=== PATIENT | female | born 1980 | race African-American/Black ===

== ENCOUNTER 2017-04-16 12:30 | Emergency (ER) | payer BC ==
[~2017-04-16] VITALS: Ht 167.6 cm; Wt 81.6 kg
[2017-04-16 12:38] VITALS: BP 132/84
[2017-04-16] MEDS ORDERED: AMOX1TAB61 PO (13:09)
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
[2017-04-16 13:54] LABS: NEGATIVE OBC STREP NEG; POSITIVE OBC STREP POS
== END 2017-04-16 13:15 | disposition home or self-care (01) ==
LOC: ER 12:30
DX: S06.0X0A Concussion without loss of consciousness, initial encounter (principal); J32.9 Chronic sinusitis, unspecified; K04.7 Periapical abscess without sinus; X58.XXXA Exposure to other specified factors, initial encounter; Y93.89 Activity, other specified; Y99.8 Other external cause status; Y92.89 Other specified places as the place of occurrence of the external cause
CPT/HCPCS: 87070; 87880; 99283